=== PATIENT | male | born 1990 | race Caucasian/White ===

== ENCOUNTER 2018-05-07 11:01 | Emergency (ER) | payer MEDICAID ==
[2018-05-07] MEDS: HYDROCODONE/APAP (10/325) TAB PO (12:11)
== END 2018-05-07 12:23 | disposition home or self-care (01) ==
LOC: FTE 11:01
DX: K08.89 Other specified disorders of teeth and supporting structures (principal)
CPT/HCPCS: 99284; Z7502